=== PATIENT | female | born 1980 | race African-American/Black ===

== ENCOUNTER 2019-10-15 23:33 | Emergency (ER) | payer OTHER, SELFPAY ==
--- NOTE | 2019-10-15 23:38 | ED_ITS ---
HPI - Chest Pain General Chief Complaint: Chest Pain Stated Complaint: chest pain Time Seen by Provider: 10/15/19 23:37 Source: patient Mode of arrival: Ambulatory Limitations: no limitations History of Present Illness HPI narrative: 38-year-old female nonsmoker with history of reflux presents with a friend and a chief complaint of some sharp and stabbing anterior chest wall pain which is worse with palpitation, moving and laying flat. The symptoms started at 6:00 p.m. tonight and are associated with some tingling in the left side of her jaw and shoulder. She denies any dizziness, weakness or lightheadedness. She denies any cough or shortness of breath. She denies any exertional symptoms or change in how she feels with exertion. She denies nausea, vomiting or diaphoresis. MD complaint: chest pain Onset (ago): hour(s) Time: 18:00 Duration: constant Onset: during rest Pain location: left chest Severity: moderate Quality: sharp Pain radiation: jaw/teeth Relieving factors: rest and remaining still Exacerbating factors: movement Treatments prior to arrival chest pain: none Related Data On Oral Contraceptives: No Allergies Allergy/AdvReac Type Severity Reaction Status Date / Time No Known Drug Allergies Allergy Verified 10/15/19 23:57 Review of Systems Constitutional Constitutional: Denies chills, Denies fatigue, Denies fever(s), Denies frequent falls, Denies lethargy and Denies weakness Eyes Eyes: Denies change in vision, Denies eye discharge, Denies irritation and Denies loss of vision ENT Ears, Nose, Mouth, and Throat: Denies change in voice, Denies dizziness, Denies neck pain, Denies sore throat and Denies throat swelling Cardiovascular Cardiovascular: Reports chest pain, Denies irregular heart rhythm, Denies lightheadedness, Denies palpitations, Denies dyspnea, Denies dyspnea on exertion and Denies orthopnea Respiratory Respiratory: Denies cough, Denies dyspnea, Denies dyspnea on exertion and Denies wheezing Gastrointestinal Gastrointestinal: Denies abdominal pain, Denies change in bowel habits, Denies diarrhea, Denies nausea and Denies vomiting Genitourinary Genitourinary: Denies hematuria, Denies flank pain, Denies urinary incontinence and Denies urinary urgency Musculoskeletal Musculoskeletal: Denies back pain, Denies muscle weakness, Denies neck pain, Denies numbness and Denies tingling Integumentary/Breasts Skin/Breast: Denies pruritus, Denies erythema, Denies rash and Denies wounds Neurologic Neurologic: Denies behavioral changes, Denies confusion, Denies dizziness, Denies frequent falls, Denies loss of vision, Denies numbness, Denies tingling and Denies weakness Psychiatric Psychiatric: Denies anxiety, Denies behavioral changes, Denies confusion, Denies depression, Denies homicidal ideation and Denies suicidal ideation Endocrine Endocrine: Denies fatigue, Denies flushing and Denies palpitations Hematologic/Lymphatic Hematologic/Lymphatic: Denies easy bruising Allergic/Immunologic Allergic/Immunologic: Denies urticaria, Denies throat swelling and Denies wheezing Patient History Social History Smoking Status: Never smoker Exam Narrative Exam Narrative: GENERAL: [38] year old patient appears stated age. Well- nourished, well-developed patient, in mild distress. HEAD: Atraumatic. Normocephalic. EYES: Pupils equal round and reactive. Extraocular motions intact. No scleral icterus. No injection or drainage. ENT: Nose without bleeding, purulent drainage. Throat without erythema, tonsillar hypertrophy or exudate. Airway patent. NECK: Trachea midline. Non tender CARDIOVASCULAR: Regular rate and rhythm without murmurs, gallops, or rubs. Left anterior chest pain to palpation, she states this is the pain that brought her in RESPIRATORY: Clear to auscultation. Breath sounds equal bilaterally. No wheezes, rales, or rhonchi. GASTROINTESTINAL: Abdomen soft, non-tender, nondistended. EXTREMITIES: No edema or joint tenderness. BACK: Nontender without deformity or crepitance. No flank tenderness. NEURO: AOx3. SKIN: No rash or erythema of visible areas Initial Vital Signs Initial Vital Signs: Vital Signs Temperature 98.3 F 10/15/19 23:57 Pulse Rate 78 10/15/19 23:57 Respiratory Rate 15 10/15/19 23:57 Blood Pressure 127/77 10/15/19 23:57 Pulse Oximetry 99 10/15/19 23:57 Course Orders Ordered: ED Orders 10/15/19 23:40 EKG-12 Lead Routine 10/15/19 23:45 XR chest 1V Stat Complete Blood Count AUTO DIFF Stat Comprehensive Metabolic Panel Stat D Dimer Stat Lipase Stat Troponin & CK Cardiac Panel Stat EKG-12 Lead Stat 10/16/19 01:09 CT angio chest PE protocol Stat Sodium Chloride (Normal Saline 0.9%) 1,000 mls @ 150 mls/hr IV CONT MARIA M Discontinued Medications Aspirin (Aspirin Chew) 324 mg PO NOW ONE Stop: 10/15/19 23:46 Last Admin: 10/16/19 00:15 Dose: 324 mg Documented by: MASON Vital Signs Vital signs: Vital Signs - 8 hr 10/15/19 23:57 Temperature 98.3 F Pulse Rate 78 Respiratory Rate 15 Blood Pressure 127/77 Pulse Oximetry 99 MDM - Chest Pain Lab Data Result diagrams: 10/16/19 00:21 10/16/19 00:21 Labs: Lab Results 10/16/19 10/16/19 10/16/19 Range/Units 00:21 00:21 00:21 WBC 9.9 (4.5-11.0) X10^3/uL RBC 4.17 (4.0-5.2) X10^6/uL Hgb 12.8 (12.0-16.0) g/dL Hct 37.8 (36-46) % MCV 90.6 (80-100) fL MCH 30.7 (26-34) PG MCHC 33.9 (30-36) % RDW 13.7 (11.6-14.8) % Plt Count 276 (150-400) X10^3/uL Neut % (Auto) 64.0 (50-75) % Lymph % (Auto) 29.5 (25-40) % Acadia % (Auto) 5.5 (3-14) % Eos % (Auto) 0.4 L (2-4) % Baso % (Auto) 0.6 (0-2) % Neut # (Auto) 6400 (7742-6315) /uL Lymph # (Auto) 2900 (6743-1614) /uL Acadia # (Auto) 500 (0-900) /uL Eos # (Auto) 0 (0-450) /uL Baso # (Auto) 100 (0-100) /uL D-Dimer 362 H (<230) ng/mL Sodium 141 (137-145) mmol/L Potassium 3.9 (3.4-5.1) mmol/L Chloride 104 (98-107) mmol/L Carbon Dioxide 26 (22-32) mmol/L BUN 10 (7-17) mg/dL Creatinine 0.80 (0.52-1.04) mg/dL Estimated GFR > 60.0 (>60) mL/min BUN/Creatinine Ratio 12.5 (6-22) Glucose 110 H (70-100) mg/dL Calcium 10.1 (8.4-10.2) mg/dL Total Bilirubin 0.8 (0.2-1.3) mg/dL AST 42 H (14-36) IU/L ALT 116 H (<35) IU/L Alkaline Phosphatase 39 (38-126) U/L Total Creatine Kinase 53 (30-135) U/L CK-MB (CK-2) TNP CK-MB (CK-2) Rel Index TNP Troponin I < 0.012 (0.01-0.034) ng/mL Total Protein 7.8 (6.3-8.2) g/dL Albumin 4.6 (3.5-5.0) g/dL Globulin 3.2 (1.7-4.1) g/dL Albumin/Globulin Ratio 1.4 (1.0-2.8) Lipase 150 (23-300) U/L Imaging Data CT scan - chest: Radiologist's Impression: No PE or other intrathoracic abnormality ECG Data Interpretation: EKG is normal sinus rhythm rate [ ] and free of any signs of ischemia or ectopy. No ST segmental elevation or depression. No T wave inversions MDM Narrative Medical decision making narrative: Patient with sharp and stabbing reproducible left anterior chest pain was recently started control. EKG is nonischemic and troponin at the 6 hour time interval is undetectable. D-dimer is slightly elevated and given use of exogenous estrogen a CT angiogram to rule out PE is ordered. Patient has been given return precautions and is at her questions answered to her apparent satisfaction Discharge Plan Departure Patient Disposition: Home Clinical Impression: Atypical chest pain Instructions: DI for Atypical Chest Pain Activity Restrictions/Additional Instructions: *You have been diagnosed with [atypical chest pain] *What to do: *Take medications as directed *Follow up with your primary care provider in 2-3 days, call for an appointment. Let them know you were seen in the Emergency Department and that we ask that you be seen in follow up *Return to ER if you should have any new, worsening or concerning symptoms
--- NOTE | 2019-10-15 23:45 | DI.RAD.S_ITS ---
PROCEDURE: XR CHEST 1V INDICATIONS: chest pain TECHNIQUE: One view of the chest was acquired. COMPARISON: None. FINDINGS: Surgical changes and devices: None. Lungs and pleura: Lungs are clear. No pleural effusions or pneumothorax. Mediastinum: Mediastinal contours appear normal. Heart size is normal. Bones and chest wall: No suspicious bony lesions. Overlying soft tissues appear unremarkable. IMPRESSION: No acute cardiopulmonary disease process. Dictated by: Starr Nicole MD, PhD on 10/16/2019 at 8:53 Approved by: Starr Nicole MD, PhD on 10/16/2019 at 8:58
[2019-10-15 23:57] VITALS: BP 127/77; PULSE 78; RESP 15; TEMP 36.8; O2SAT 99; BMI 29.0
[2019-10-16] MEDS: ASPIRIN 81 MG CHEW TAB 324 MG PO (00:15)
[2019-10-16 00:32] LABS: Add Manual Diff / Slide Review NO; Basophils Absolute Auto 100 /uL (0-100); Basophils Percent Auto 0.6 % (0-2); Eosinophils Absolute Auto 0 /uL (0-450); Eosinophils Percent Auto 0.4 % (2-4); Hematocrit 37.8 % (36-46); Hemoglobin 12.8 g/dL (12.0-16.0); Lymphocytes Absolute Auto 2900 /uL (1100-4500); Lymphocytes Percent Auto 29.5 % (25-40); Mean Corpuscular HGB Conc 33.9 % (30-36); Mean Corpuscular Hemoglobin 30.7 PG (26-34); Mean Corpuscular Volume 90.6 fL (80-100); Monocytes Absolute Auto 500 /uL (0-900); Monocytes Percent Auto 5.5 % (3-14); Neutrophils Absolute Auto 6400 /uL (1500-7000); Platelet Count 276 X10^3/uL (150-400); Red Blood Cell Count 4.17 X10^6/uL (4.0-5.2); Red Cell Distribution Width 13.7 % (11.6-14.8); White Blood Cell Count 9.9 X10^3/uL (4.5-11.0)
[2019-10-16 00:39] LABS: D Dimer 362 ng/mL (<230)
[2019-10-16 00:41] LABS: Alanine Aminotransferase 116 IU/L (<35); Albumin 4.6 g/dL (3.5-5.0); Albumin Globulin Ratio 1.4 (1.0-2.8); Alkaline Phosphatase 39 U/L (38-126); Aspartate Aminotransferase 42 IU/L (14-36); BUN Creatinine Ratio 12.5 (6-22); Bilirubin Total 0.8 mg/dL (0.2-1.3); Blood Urea Nitrogen 10 mg/dL (7-17); Calcium 10.1 mg/dL (8.4-10.2); Carbon Dioxide 26 mmol/L (22-32); Chloride 104 mmol/L (98-107); Creatine Kinase 53 U/L (30-135); Estimated Glomerular Filt Rate > 60.0 mL/min (>60); Globulin 3.2 g/dL (1.7-4.1); Glucose 110 mg/dL (70-100); HEMOLYSIS < 15 (0-50); Lipase 150 U/L (23-300); Potassium 3.9 mmol/L (3.4-5.1); Sodium 141 mmol/L (137-145); Total Protein 7.8 g/dL (6.3-8.2)
[2019-10-16 00:52] LABS: Troponin I < 0.012 ng/mL (0.01-0.034)
--- NOTE | 2019-10-16 01:09 | DI.CT.S_ITS ---
PROCEDURE: CT ANGIO CHEST PE PROTOCOL INDICATIONS: chest pain, shortness of breath, elevated D-Dimer, estrogens TECHNIQUE: After the administration of intravenous contrast, 2 mm thick sections acquired from the pulmonary apices to the posterior costophrenic angles. 3-dimensional maximum intensity projection (MIP) coronal and sagittal reformats were then acquired through the thorax. For radiation dose reduction, the following was used: automated exposure control, adjustment of mA and/or kV according to patient size. COMPARISON: None. FINDINGS: Image quality: Excellent. Pulmonary arteries: Pulmonary arteries are normal in size, and demonstrate no intraluminal filling defects to suggest central pulmonary embolism. Lungs and pleura: Lungs are clear. 2-3 mm calcified granuloma noted in the left upper lobe (series 3, image 108). No pleural effusions or pneumothorax. Central and peripheral airways are patent. Mediastinum: Heart size is normal, without pericardial effusion. No mediastinal or hilar adenopathy. Thoracic aorta is normal in caliber and enhancement. Esophagus is normal in caliber, without hiatal hernia. Bones and chest wall: No suspicious bony lesions. Ribs and thoracic spine appear intact throughout. Thyroid gland is normal where visualized. No axillary or supraclavicular adenopathy. Abdomen: Left kidney is absent or ptotic. Gallbladder is absent. Visualized upper abdominal solid organs otherwise appear normal in the early arterial phase of enhancement. IMPRESSION: No pulmonary embolus. Dictated by: Starr Nicole MD, PhD on 10/16/2019 at 7:13 Approved by: Starr Nicole MD, PhD on 10/16/2019 at 9:17
[2019-10-16 02:49] VITALS: BP 112/71; PULSE 62; RESP 11; O2SAT 99
== END 2019-10-16 02:50 | disposition home or self-care (01) ==
PROVIDERS: Emergency Provider Emergency Medicine
DX: R07.89 Other chest pain (principal)
CPT/HCPCS: 36415; 71045; 71275; 80053; 82550; 83690; 84484; 85025; 85379; 93005; 99284; 99285; Q9967

== ENCOUNTER → 2019-10-21 12:33 | Outpatient (CLI) | payer OTHER, SELFPAY ==
--- NOTE | 2019-10-21 | DI.US.S_ITS ---
ULTRASOUND OF LEFT BREAST: 10/21/2019 CLINICAL: Focal left breast pain. Comparison is made to exams dated: 10/21/2019 mammogram - [facility] and 09/12/2017 mammogram - [facility]. Real-time ultrasound of the left breast was performed. Alonso scale images of the real-time examination were reviewed. No significant abnormalities were seen sonographically in the left breast. IMPRESSION: NEGATIVE There is no sonographic evidence of malignancy. There is no abnormality seen in the left breast to correspond with the area of clinical concern, palpable abnormality, and pain indicated by triangular marker, however, clinical followup is recommended for persistent or worsening symptoms. A screening mammogram is recommended at age 40. This exam was interpreted at Station ID: [id number]. Electronically Signed By: Yasmany Muniz M.D. at/:10/21/2019 15:56:27 letter sent: Normal Exam Ultrasound BI-RADS: 1 Negative
--- NOTE | 2019-10-21 | DI.MG.S_ITS ---
BILATERAL DIGITAL DIAGNOSTIC MAMMOGRAM 3D/2D: 10/21/2019 CLINICAL: Bilateral breast pain. Comparison is made to exam dated: 09/12/2017 mammogram - [facility]. The tissue of both breasts is heterogeneously dense. This may lower the sensitivity of mammography. No significant masses, calcifications, or other findings are seen in either breast. IMPRESSION: INCOMPLETE: NEEDS ADDITIONAL IMAGING EVALUATION There is no abnormality seen in either breast to correspond with the area of clinical concern, palpable abnormality, and pain indicated by triangular markers in the superior region of the breasts, however, ultrasound is recommended. The recommended breast ultrasound is scheduled to immediately follow this examination. This exam was interpreted at Station ID: [id number]. NOTE: For mammograms, a report in lay terms will be sent to the patient. Approximately 15% of breast malignancies will not be visualized mammographically. In the management of a palpable breast mass, a negative mammogram must not discourage biopsy of a clinically suspicious lesion. Electronically Signed By: Yasmany Muniz M.D. aty/:10/21/2019 13:41:12 ACR BI-RADS Category 0: Incomplete [id number]
--- NOTE | 2019-10-21 | DI.US.S_ITS ---
ULTRASOUND OF RIGHT BREAST: 10/21/2019 CLINICAL: Focal right breast pain. Comparison is made to exams dated: 10/21/2019 mammogram - [facility] and 09/12/2017 mammogram - [facility]. Real-time ultrasound of the right breast was performed. Alonso scale images of the real-time examination were reviewed. No significant abnormalities were seen sonographically in the right breast. IMPRESSION: NEGATIVE There is no sonographic evidence of malignancy. There is no abnormality seen in the right breast to correspond with the area of clinical concern, palpable abnormality, and pain indicated by triangular marker, however, clinical followup is recommended for persistent or worsening symptoms. A screening mammogram is recommended at age 40. This exam was interpreted at Station ID: [id number]. Electronically Signed By: Yasmany Muniz M.D. aty/:10/21/2019 15:51:45 letter sent: Normal Exam Ultrasound BI-RADS: 1 Negative
== END ==
PROVIDERS: PCP Family Medicine; Referring Provider Family Medicine; Visit Provider Family Medicine
DX: R92.8 Other abnormal and inconclusive findings on diagnostic imaging of breast (principal); N64.4 Mastodynia
CPT/HCPCS: 76642; 77066; G0279

== ENCOUNTER → 2020-10-22 10:39 | Outpatient (CLI) | payer OTHER, SELFPAY ==
--- NOTE | 2020-10-22 | DI.MG.S_ITS ---
BILATERAL DIGITAL SCREENING MAMMOGRAM 3D/2D WITH CAD: 10/22/2020 CLINICAL: Routine screening. Comparison is made to exams dated: 10/21/2019 mammogram - [facility] and 09/12/2017 mammogram - [facility]. The tissue of both breasts is heterogeneously dense. This may lower the sensitivity of mammography. Current study was also evaluated with a Computer Aided Detection (CAD) system. No significant masses, calcifications, or other findings are seen in either breast. There has been no significant interval change. IMPRESSION: NEGATIVE There is no mammographic evidence of malignancy. A 1 year screening mammogram is recommended. This exam was interpreted at Station ID: [id number]. NOTE: For mammograms, a report in lay terms will be sent to the patient. Approximately 15% of breast malignancies will not be visualized mammographically. In the management of a palpable breast mass, a negative mammogram must not discourage biopsy of a clinically suspicious lesion. Electronically Signed By: Kristofer Fleming acr/penrad:10/22/2020 14:20:14 letter sent: Normal Exam ACR BI-RADS Category 1: Negative [id number]
== END ==
PROVIDERS: PCP Family Medicine; Referring Provider Family Medicine; Visit Provider Family Medicine
DX: Z12.31 Encounter for screening mammogram for malignant neoplasm of breast (principal)
CPT/HCPCS: 77063; 77067

== ENCOUNTER → 2021-10-28 10:22 | Outpatient (CLI) | payer OTHER, SELFPAY ==
--- NOTE | 2021-10-28 | DI.MG.S_ITS ---
BILATERAL DIGITAL SCREENING MAMMOGRAM 3D/2D WITH CAD: 10/28/2021 CLINICAL: Routine screening. Comparison is made to exams dated: 10/22/2020 mammogram, 10/21/2019 ultrasound, 10/21/2019 mammogram - [facility], and 09/12/2017 mammogram - [facility]. The tissue of both breasts is heterogeneously dense. This may lower the sensitivity of mammography. Current study was also evaluated with a Computer Aided Detection (CAD) system. No significant masses, calcifications, or other findings are seen in either breast. There has been no significant interval change. IMPRESSION: NEGATIVE There is no mammographic evidence of malignancy. A 1 year screening mammogram is recommended. This exam was interpreted at Station ID: [id number]. NOTE: For mammograms, a report in lay terms will be sent to the patient. Approximately 15% of breast malignancies will not be visualized mammographically. In the management of a palpable breast mass, a negative mammogram must not discourage biopsy of a clinically suspicious lesion. Electronically Signed By: Yue mancera/randal:10/28/2021 12:55:41 letter sent: Normal Exam ACR BI-RADS Category 1: Negative [id number]
== END ==
PROVIDERS: PCP Family Medicine; Referring Provider Family Medicine; Visit Provider Family Medicine
DX: Z12.31 Encounter for screening mammogram for malignant neoplasm of breast (principal)
CPT/HCPCS: 77063; 77067

== ENCOUNTER 2022-07-01 10:32 | Emergency (ER) | payer OTHER, SELFPAY ==
[2022-07-01] VITALS (9 sets, daily range): BP systolic 116–134; BP diastolic 76–94; PULSE 68–85; RESP 15; TEMP 36.1; O2SAT 91–100; BMI 27.4
--- NOTE | 2022-07-01 10:53 | DI.RAD.S_ITS ---
PROCEDURE: XR CHEST 1V INDICATIONS: chest pain TECHNIQUE: One view of the chest was acquired. COMPARISON: None. FINDINGS: Surgical changes and devices: None. Lungs and pleura: Lungs are clear. No pleural effusions or pneumothorax. Mediastinum: Mediastinal contours appear normal. Heart size is normal. Bones and chest wall: No suspicious bony lesions. Overlying soft tissues appear unremarkable. IMPRESSION: No acute cardiopulmonary abnormality. Dictated by: Austin Vargas M.D. on 07/01/2022 at 11:12 Approved by: Austin Vargas M.D. on 07/01/2022 at 11:13
[2022-07-01 11:23] LABS: Add Manual Diff / Slide Review NO; Basophils Absolute Auto 0 /uL (0-100); Basophils Percent Auto 0.3 % (0-2); Eosinophils Absolute Auto 300 /uL (0-450); Eosinophils Percent Auto 2.4 % (2-4); Hematocrit 44.5 % (36-46); Hemoglobin 15.2 g/dL (12.0-16.0); Lymphocytes Absolute Auto 1900 /uL (1100-4500); Lymphocytes Percent Auto 17.6 % (25-40); Mean Corpuscular HGB Conc 34.1 % (30-36); Mean Corpuscular Hemoglobin 30.3 PG (26-34); Mean Corpuscular Volume 88.8 fL (80-100); Monocytes Absolute Auto 400 /uL (0-900); Monocytes Percent Auto 3.8 % (3-14); Neutrophils Absolute Auto 8300 /uL (1500-7000); Neutrophils Percent Auto 75.9 % (50-75); Platelet Count 299 X10^3/uL (150-400); Red Blood Cell Count 5.01 X10^6/uL (4.0-5.2); Red Cell Distribution Width 13.4 % (11.6-14.8)
[2022-07-01 11:33] LABS: Alanine Aminotransferase 81 IU/L (<35); Albumin 4.9 g/dL (3.5-5.0); Alkaline Phosphatase 64 U/L (38-126); Aspartate Aminotransferase 53 IU/L (14-36); Bilirubin Total 0.8 mg/dL (0.2-1.3); Blood Urea Nitrogen 9 mg/dL (7-17); Calcium 10.2 mg/dL (8.4-10.2); Carbon Dioxide 29 mmol/L (22-32); Chloride 99 mmol/L (98-107); Creatine Kinase 142 U/L (30-135); Estimated Glomerular Filt Rate > 60 mL/min (>60); Globulin 4.7 g/dL (1.7-4.1); Glucose 102 mg/dL (70-100); HEMOLYSIS 19 (0-50); Lipase 47 U/L (23-300); Magnesium 2.1 mg/dL (1.6-2.3); Potassium 4.3 mmol/L (3.4-5.1); Sodium 143 mmol/L (137-145); Total Protein 9.6 g/dL (6.3-8.2)
[2022-07-01 11:45] LABS: Troponin I < 0.012 ng/mL (0.01-0.034)
--- NOTE | 2022-07-01 11:56 | DI.US.S_ITS ---
PROCEDURE: US PERIPH VENOUS UP EXTREM LT INDICATIONS: PAIN/SWELLING. RECENT SURGERY TECHNIQUE: Real-time imaging, as well as color and pulse Doppler interrogation, was performed of the left upper extremity deep veins from the inferior neck to the antecubital fossa. COMPARISON: None. FINDINGS: There is occlusive thrombus in the brachial vein x2. There is partially occlusive thrombus in the axillary vein. Right IJ, subclavian vein, cephalic vein, basilic vein are patent. IMPRESSION: Positive exam. DVT in the brachial and axillary veins. Comment: Findings were discussed with Mike Salas at 4:27 p.m. Dictated by: Austin Vargas M.D. on 07/01/2022 at 16:23 Approved by: Austin Vargas M.D. on 07/01/2022 at 16:28
--- NOTE | 2022-07-01 11:58 | ED_ITS ---
HPI - Dizziness General Chief Complaint: Dizziness Stated Complaint: surgery sunday, lt arm numb, ligheaded, BP up Time Seen by Provider: 07/01/22 11:51 Source: patient Mode of arrival: Ambulatory History of Present Illness HPI Narrative: 41-year-old female nonsmoker presents with in the chief complaint of some left arm discomfort and heaviness with fatigue, shortness of breath and some dizziness over the past few days. She denies any cough or chest pain. She denies fever or chills. She denies runny nose, sore throat. She has no nausea, vomiting or diarrhea. She denies worsening pain with deep breath or exertion. Does have some pain with use of her left upper extremity. There is no obvious swelling, redness or weakness. She states that when hospitalized her IV was in the opposite arm. She had spoken with her primary care provider's and was sent here for evaluation of possible pulmonary embolism Related Data Home Medications Medication Instructions Recorded Confirmed pantoprazole 40 mg tablet,delayed 40 mg PO DAILY 12/12/21 12/12/21 release Previous Rx's Medication Instructions Recorded apixaban 5 mg (74 tabs) tablets in See Rx Instructions PO .COMPLEX 07/01/22 a dose pack (Eliquis DVT-PE Treat #74 ea 30D Start) Allergies Allergy/AdvReac Type Severity Reaction Status Date / Time ibuprofen Allergy Verified 07/01/22 10:50 Review of Systems Review of Systems Narrative: GENERAL: Denies chills, fatigue, malaise, fever, sweats. HEENT: Denies sinus pain, ear pain, sore throat, difficulty swallowing, dizziness. RESPIRATORY: Denies dyspnea, cough, wheezing, hemoptysis, sputum. CARDIOVASCULAR: See HPI GASTROINTESTINAL: Denies nausea, vomiting, abdominal pain, diarrhea, constipation, melena. : Denies dysuria, frequency, incontinence, hematuria, urinary retention. MUSCULOSKELETAL: See HPI SKIN: Denies rash, skin lesions, or other NEUROLOGIC: Denies weakness, headache, numbness, change in speech, confusion, seizures, incoordination. PSYCHIATRIC: No concerning psychosocial issues. 12 point review of systems is negative except for those stated above Patient History Medical History (normal spontaneous vaginal delivery) Surgical History Previous section S/P laparoscopic hysterectomy Social History Smoking Status: Never smoker Smoking Status: Never smoker alcohol intake frequency: holidays/special occasions only Substance Use Type: does not use Exam Narrative Exam Narrative: GENERAL: 41 [] year old patient appears stated age. Well-developed patient, in mild distress. HEAD: Atraumatic. Normocephalic. EYES: Pupils equal round and reactive. Extraocular motions intact. No scleral icterus. No injection or drainage. ENT: Nose without bleeding, purulent drainage. Throat without erythema, tonsillar hypertrophy or exudate. Airway patent. NECK: Trachea midline. Non tender CARDIOVASCULAR: Regular rate and rhythm without murmurs, gallops, or rubs. No pain on palpation RESPIRATORY: Clear to auscultation. Breath sounds equal bilaterally. No wheezes, rales, or rhonchi. GASTROINTESTINAL: Abdomen soft, non-tender, nondistended. EXTREMITIES: No edema or joint tenderness. No erythema, swelling, warmth. Sensation, muscle strength and pulses intact at wrist and fingers. Use of arm exacerbate some of her pain BACK: Nontender without deformity or crepitance. No flank tenderness. NEURO: AOx3. SKIN: No rash or erythema of visible areas Initial Vital Signs Initial Vital Signs: Vital Signs Temperature 97.0 F L 07/01/22 10:50 Pulse Rate 85 07/01/22 10:50 Respiratory Rate 15 07/01/22 10:50 Blood Pressure 134/94 H 07/01/22 10:50 Pulse Oximetry 99 07/01/22 10:50 Oxygen Delivery Method 07/01/22 10:50 Course Orders Ordered: ED Orders 07/01/22 10:53 XR chest 1V Stat 07/01/22 11:00 Complete Blood Count AUTO DIFF Stat Comprehensive Metabolic Panel Stat D Dimer Stat Lipase Stat Magnesium Stat Troponin & CK Cardiac Panel Stat 07/01/22 11:24 EKG-12 Lead Stat 07/01/22 11:56 US periph venous up extrem lt Stat 07/01/22 13:27 CT angio chest PE protocol Stat Discontinued Medications Apixaban (Apixaban 5 Mg Tablet) 10 mg PO NOW ONE Stop: 07/01/22 17:28 Consultations Consultation #1: discussed with customer records division supervisor provider for Dr. Walker at [facility] to relay US findings. They are aware and in agreement with the plan Vital Signs Vital signs: Vital Signs - 8 hr 07/01/22 10:50 07/01/22 12:38 07/01/22 12:38 Temperature 97.0 F L Pulse Rate 85 77 Respiratory Rate 15 Blood Pressure 134/94 H 131/86 Pulse Oximetry 99 99 Oxygen Delivery Method Room Air 07/01/22 13:00 07/01/22 13:00 07/01/22 13:30 Temperature Pulse Rate 73 Respiratory Rate Blood Pressure 116/87 120/86 Pulse Oximetry 99 Oxygen Delivery Method 07/01/22 13:30 07/01/22 14:03 07/01/22 14:30 Temperature Pulse Rate 75 68 77 Respiratory Rate Blood Pressure Pulse Oximetry 99 91 98 Oxygen Delivery Method 07/01/22 15:00 Temperature Pulse Rate 84 Respiratory Rate Blood Pressure Pulse Oximetry 99 Oxygen Delivery Method MDM - Dizziness Lab Data Result diagrams: 07/01/22 11:00 07/01/22 11:00 Labs: Lab Results 07/01/22 07/01/22 07/01/22 Range/Units 11:00 11:00 11:00 WBC 11.0 (4.5-11.0) X10^3/uL RBC 5.01 (4.0-5.2) X10^6/uL Hgb 15.2 (12.0-16.0) g/dL Hct 44.5 (36-46) % MCV 88.8 (80-100) fL MCH 30.3 (26-34) PG MCHC 34.1 (30-36) % RDW 13.4 (11.6-14.8) % Plt Count 299 (150-400) X10^3/uL Neut % (Auto) 75.9 H (50-75) % Lymph % (Auto) 17.6 L (25-40) % [place] % (Auto) 3.8 (3-14) % Eos % (Auto) 2.4 (2-4) % Baso % (Auto) 0.3 (0-2) % Neut # (Auto) 8300 H (2119-7674) /uL Lymph # (Auto) 1900 (7112-8590) /uL [place] # (Auto) 400 (0-900) /uL Eos # (Auto) 300 (0-450) /uL Baso # (Auto) 0 (0-100) /uL D-Dimer 1251 H (<500) ng/ml Sodium 143 (137-145) mmol/L Potassium 4.3 (3.4-5.1) mmol/L Chloride 99 (98-107) mmol/L Carbon Dioxide 29 (22-32) mmol/L BUN 9 (7-17) mg/dL Creatinine 0.90 (0.52-1.04) mg/dL Estimated GFR > 60 (>60) mL/min BUN/Creatinine Ratio 10.0 (6-22) Glucose 102 H (70-100) mg/dL Calcium 10.2 (8.4-10.2) mg/dL Magnesium 2.1 (1.6-2.3) mg/dL Total Bilirubin 0.8 (0.2-1.3) mg/dL AST 53 H (14-36) IU/L ALT 81 H (<35) IU/L Alkaline Phosphatase 64 (38-126) U/L Total Creatine Kinase 142 H (30-135) U/L CK-MB (CK-2) < 0.22 (<2.37) ng/mL CK-MB (CK-2) Rel Index 0.2 L (1.5-5.0) % Troponin I < 0.012 (0.01-0.034) ng/mL Total Protein 9.6 H (6.3-8.2) g/dL Albumin 4.9 (3.5-5.0) g/dL Globulin 4.7 H (1.7-4.1) g/dL Albumin/Globulin Ratio 1.0 (1.0-2.8) Lipase 47 (23-300) U/L Imaging Data CT scan - chest: Radiologist's Impression: [address] [address] [address] Scan Report Signed Patient: Viola Hawkins MR#: [id number] : 1980 Acct:[id number] Age/Sex: 41 / F Date of Service: 07/01/22 Loc: ED Accession Number: [id number] ?? Procedure: CT angio chest PE protocol Ordering Provider: Mike Salas D.O. PROCEDURE:? CT ANGIO CHEST PE PROTOCOL ? INDICATIONS:? SOB, critical dimer, chest pain, recent surgery, PE? ? TECHNIQUE:? After the administration of intravenous contrast, 2 mm thick sections acquired from the pulmonary apices to the posterior costophrenic angles.? 3-dimensional maximum intensity projection (MIP) coronal and sagittal reformats were then acquired through the thorax.? For radiation dose reduction, the following was used:? automated exposure control, adjustment of mA and/or kV according to patient size.? ? COMPARISON:? None. ? FINDINGS:? Image quality:? Excellent.? ? Pulmonary arteries:? Pulmonary arteries are normal in size, and demonstrate no intraluminal filling defects to suggest central pulmonary embolism.? ? Lungs and pleura:? Lungs are clear.? Left calcified granuloma.? No pleural eff usions or pneumothorax.? Central and peripheral airways are patent.? ? Mediastinum:? Heart size is normal, without pericardial effusion.? No mediastinal or hilar adenopathy.? Thoracic aorta is normal in caliber and enhancement.? Esophagus is normal in caliber, without hiatal hernia.? ? Bones and chest wall:? No suspicious bony lesions.? Ribs and thoracic spine appear intact throughout.? Thyroid gland is unremarkable.? No axillary or supraclavicular adenopathy.? ? Abdomen:? Post cholecystectomy.? Small focus of gas under the right hemidiaphragm, ().? ? IMPRESSION:? 1. No pulmonary embolism. ? 2. No acute airspace opacity. ? 3. Small focus of pneumoperitoneum.? This is presumably postsurgical in nature.? Recommend clinical correlation.? If clinically indicated consider further evaluation with CT abdomen pelvis with IV contrast.? ? Comment: Findings were discussed with Mike Salas at 1:42 p.m. Reports recent surgery on last Sunday. ? ? ? Dictated by: Austin Vargas M.D. on 07/01/2022 at 13:35 ? ? Approved by: Austin Vargas M.D. on 07/01/2022 at 13:44 ? Discharge Plan Departure Patient Disposition: Home Clinical Impression: Acute deep vein thrombosis (DVT) of left upper extremity Instructions: Deep Vein Thrombosis Activity Restrictions/Additional Instructions: *You have been diagnosed with [left upper extremity deep vein thrombosis.] *What to do: *Please continue to take your regular medications as directed. [ x] New medication prescriptions sent to your pharmacy: [[facility]] [ ] New medication written as a paper prescription [ ] No new medications given *Please follow up with your primary care provider in 2-3 days, call for an appo intment. Let them know you were seen in the Emergency Department and that we ask that you be seen in follow up. We will electronically transmit a record of today's note if your PCP is in our system *Return to Emergency Department if you should have any new, worsening or concerning symptoms Prescriptions: New Eliquis DVT-PE Treat 30D Start 5 mg (74 tabs) tablets,dose pack See Rx Instructions .ROUTE .COMPLEX Qty: 74 0RF Rx Instructions: orally per package directions No Action pantoprazole 40 mg tablet,delayed release (DR/EC) 40 mg PO DAILY Referrals: Provider,Sofi MCGILL [Primary Care Provider] -
[2022-07-01 12:13] LABS: D Dimer 1251 ng/ml (<500)
[2022-07-01 12:29] LABS: CKMB % Relative Index 0.2 % (1.5-5.0); Creatine Kinase MB < 0.22 ng/mL (<2.37)
--- NOTE | 2022-07-01 12:44 | PC.NURSE ---
pt states she had her left ovary removed sunday. she has been having soreness since then but this morning, she suddenly got light headed. accompanied with chills, anxiety and SOB with left arm numbness. all symptoms resolved except for left arm numbness. cap refill less than 3 seconds, radial pulse weak (compared to right side). pt states she did take a tramadol yesterday morning and was wondering if this would make her feel this way. she states she did not like the way it made her feel, like my eyes were sweating. surgical site looks clean dry and intact. On Q pump in place.
--- NOTE | 2022-07-01 13:27 | DI.CT.S_ITS ---
PROCEDURE: CT ANGIO CHEST PE PROTOCOL INDICATIONS: SOB, critical dimer, chest pain, recent surgery, PE? TECHNIQUE: After the administration of intravenous contrast, 2 mm thick sections acquired from the pulmonary apices to the posterior costophrenic angles. 3-dimensional maximum intensity projection (MIP) coronal and sagittal reformats were then acquired through the thorax. For radiation dose reduction, the following was used: automated exposure control, adjustment of mA and/or kV according to patient size. COMPARISON: None. FINDINGS: Image quality: Excellent. Pulmonary arteries: Pulmonary arteries are normal in size, and demonstrate no intraluminal filling defects to suggest central pulmonary embolism. Lungs and pleura: Lungs are clear. Left calcified granuloma. No pleural effusions or pneumothorax. Central and peripheral airways are patent. Mediastinum: Heart size is normal, without pericardial effusion. No mediastinal or hilar adenopathy. Thoracic aorta is normal in caliber and enhancement. Esophagus is normal in caliber, without hiatal hernia. Bones and chest wall: No suspicious bony lesions. Ribs and thoracic spine appear intact throughout. Thyroid gland is unremarkable. No axillary or supraclavicular adenopathy. Abdomen: Post cholecystectomy. Small focus of gas under the right hemidiaphragm, (). IMPRESSION: 1. No pulmonary embolism. 2. No acute airspace opacity. 3. Small focus of pneumoperitoneum. This is presumably postsurgical in nature. Recommend clinical correlation. If clinically indicated consider further evaluation with CT abdomen pelvis with IV contrast. Comment: Findings were discussed with Mike Salas at 1:42 p.m. Reports recent surgery on last Sunday. Dictated by: Austin Vargas M.D. on 07/01/2022 at 13:35 Approved by: Austin Vargas M.D. on 07/01/2022 at 13:44
--- NOTE | 2022-07-01 16:09 | PC.NURSE ---
spoke with provider, pt has surgical pain meds she is taking, he is okay if she takes them with food. pt instructed to take zofran SL 4mg pill first then eat her food then take her hydromorphone 2mg pill. gone over side effects of medications and that patient can cut pill in half if she thinks it is too strong for her.
[2022-07-01] MEDS: APIXABAN 5 MG TABLET 10 MG PO (18:16)
== END 2022-07-01 18:46 | disposition home or self-care (01) ==
PROVIDERS: Emergency Provider Emergency Medicine
DX: I82.622 Acute embolism and thrombosis of deep veins of left upper extremity (principal); R06.02 Shortness of breath; R07.9 Chest pain, unspecified; Z79.899 Other long term (current) drug therapy
CPT/HCPCS: 36415; 71045; 71275; 80053; 82550; 82553; 83690; 83735; 84484; 85025; 85379; 93005; 93971; 99284; Q9967

== ENCOUNTER → 2023-12-31 08:53 | Outpatient (CLI) | payer OTHER, SELFPAY ==
--- NOTE | 2023-12-31 | DI.MG.S_ITS ---
UNILATERAL LEFT DIGITAL DIAGNOSTIC MAMMOGRAM 3D/2D: 12/31/2023 CLINICAL: Breast pain. Comparison is made to exams dated: 09/11/2023 mammogram - Outside facility, 10/28/2021 mammogram, and 10/22/2020 mammogram - [facility]. The left breast is heterogeneously dense, which may obscure small masses (category c / 51-75% glandular tissue). No significant masses, calcifications, or other findings are seen in the breast. IMPRESSION: NEGATIVE There is no abnormality seen in the left breast to correspond with the area of clinical concern described as diffuse pain, however, recommend clinical follow up for persistent or worsening symptoms, or development of any clinically suspicious findings. There is no mammographic evidence of malignancy. Return to annual mammogram screening schedule is recommended. Findings and recommendations were conveyed to the patient during today's evaluation. Based on the Tyrer Cuzick model (a risk assessment model) the patient's lifetime risk is 10.2% and her 10 year risk is 1.7%. According to the ACR, ACS, and NCCN guidelines, an annual breast MRI exam along with mammogram is recommended if the patient's lifetime risk is 20% or greater. This exam was interpreted at Station ID: [id number]. NOTE: For mammograms, a report in lay terms will be sent to the patient. Approximately 15% of breast malignancies will not be visualized mammographically. In the management of a palpable breast mass, a negative mammogram must not discourage biopsy of a clinically suspicious lesion. Electronically Signed By: Yasmany Muniz M.D. aty/:12/31/2023 09:49:14 letter sent: Normal Exam ACR BI-RADS Category 1: Negative [id number]
== END ==
LOC: MAMMO 08:54
DX: N64.4 Mastodynia (principal); R92.332 Mammographic heterogeneous density, left breast
CPT/HCPCS: 77065; G0279